=== PATIENT | male | born 1940 | race Caucasian/White ===

== ENCOUNTER 2017-11-28 06:55 | Observation (INO) | payer OTHER ==
[~2017-11-28] VITALS: Ht 177.8 cm; Wt 68.0 kg
--- NOTE | ~2017-11-28 | EKG ---
[address] [address] ELECTROCARDIOGRAM REPORT Name: ТАТЬЯНА MANCIA Room #: 211-P [facility]..#: [id number] Admission: 11/28/17 Attend Phys: Ruperto Flores MD Discharge: Date of : 44 Report #: [id number] THIS REPORT FOR: //name// [facility] Test Date: 2017-11-29 Test Time: 08:38:18 Pat Name: ТАТЬЯНА MANCIA Department: Room: 211 P Gender: M Cement Mixer: eliu : 1940 Requested By: Ruperto Flores Order Number: [id number] MD: Miguel Lowry Measurements Intervals [place] Rate: 73 P: 46 MD: 155 QRS: -72 QRSD: 143 T: 86 QT: 445 QTc: 491 Interpretive Statements Atrial-sensed ventricular-paced complexes No further analysis attempted due to paced rhythm No previous ECG available for comparison Electronically Signed On 11-29-2017 8:47:28 [place] [employer] by Miguel Lowry [email or web address] <ELECTRONICALLY SIGNED> By: Miguel Lowry MD, [facility] 11/29/17 0847 7 7 Miguel Lowry MD, [facility] /EPI
--- NOTE | ~2017-11-28 | P ---
[facility] [place] [address] PROCEDURE REPORT Name: ТАТЬЯНА MANCIA Room #: 211-P [facility] Jasmine MChacorta#: [id number] Admission: 11/28/17 Attend Phys: Ruperto Flores MD Discharge: 11/29/17 Date of : 44 Report #: [id number] THIS REPORT FOR: //name// CC: Shira Henson PROCEDURE PERFORMED: Bi-V ICD implantation. PREOPERATIVE DIAGNOSIS: Ischemic cardiomyopathy. HISTORY OF PRESENT ILLNESS: The patient is a 77-year-old with history of an ischemic cardiomyopathy, EF of 25% with class 3 heart failure symptoms and a left bundle branch block, QRS duration 152 milliseconds, who has been on optimal medical therapy for 3 months. He is here for biventricular ICD implantation. ANESTHESIA: The patient underwent MAC anesthesia with no anesthesia related complications. PROCEDURE: The patient underwent informed consent where we discussed the details of the procedure including the risks, which included, but not limited to bleeding, infection, vascular damage, cardiac perforation and pneumothorax. He understood these risks and is willing to proceed. As such, the patient was brought to the EP laboratory in a fasting and sedated state and prepped and draped in a sterile fashion. He underwent venography showing patency of the left axillary vein and received IV antibiotics. I then injected lidocaine at the level below the left clavicle, incision was made, a pocket was created over the prepectoral fascia and access was obtained 3 times to the left axillary vein using the extrathoracic approach with sheaths positioned using the modified Seldinger technique. Next, leads were positioned in the right ventricular apex and the right atrial appendage. These leads were sutured to the prepectoral fascia using Ethibond suture. Next, a coronary sinus guide sheath was placed into the right atrium and coronary sinus access was obtained without difficulty, there was a nice posterolateral branch noted and a quadripolar lead was positioned into this vessel with adequate pacing and sensing thresholds. Therefore, this sheath was split and this lead was sutured to the prepectoral fascia. The device was connected to leads and placed in the pocket and the pocket was irrigated with vancomycin and then closed in 3 layers. Surgical glue was placed to the outer skin layer. The patient awoke neurologically and hemodynamically intact with no complications and no significant bleeding. The implanted defibrillator was a [employer] model #[id number], serial #[id number]. Atrial lead was a [employer] model #2088TC, 52 cm, serial #[id number]. This lead demonstrated sensing of 2.3 millivolts, pacing impedance of 490 ohms and a pacing threshold of 0.5 volts at 0.5 milliseconds. RV lead was a [employer] model #7122Q, 58 cm, serial #[id number]. This lead demonstrated a R-wave of greater than 12 millivolts, pacing impedance of 680 ohms and a pacing threshold of 0.75 volts at 0.5 milliseconds. The LV lead was [facility] [address] [place] [address] PROCEDURE REPORT Name: ТАТЬЯНА MANCIA Room #: 211-P [facility] Lin#: [id number] Admission: 11/28/17 Attend Phys: Ruperto Flores MD Discharge: 11/29/17 Date of : 44 Report #: [id number] [employer] model #1458Q, 86 cm, serial #[id number], this demonstrated an impedance of 610 ohms and a pacing threshold of 1 volt at 0.5 milliseconds. The device was programmed to the DDDR 60-130 mode. The VT zone was set at 180-220 beats per minute with 3 rounds of bursts followed by 3 rounds of ramp followed by max output shocks. The VT zone was set at greater than 220 beats per minute with ATP while charging followed by max output shocks. CONCLUSIONS: 1. Successful Bi-V ICD implantation. 2. Satisfactory atrial, right ventricular and left ventricular pacing and sensing thresholds. <ELECTRONICALLY SIGNED> By: Ruperto Flores MD 12/21/17 1749 1444 1912 Ruperto Flores MD /nt
--- NOTE | ~2017-11-28 | D ---
[facility] [place] [address] DISCHARGE SUMMARY Name: ТАТЬЯНА MANCIA Room #: 211-P [facility] Jasmine Lin#: [id number] Admission: 11/28/17 Attend Phys: Ruperto Flores MD Discharge: 11/29/17 Date of : 44 Report #: [id number] THIS REPORT FOR: //name// CC: Shira Henson DATE OF SERVICE: 11/29/2017 DISCHARGE DIAGNOSES: 1. Ischemic cardiomyopathy. 2. [employer] functional class 3 heart failure. 3. Left bundle-branch block. PROCEDURES PERFORMED Bi-V ICD implantation. HISTORY OF PRESENT ILLNESS: The patient is a gentleman with an ischemic cardiomyopathy, here for Bi-V ICD implantation. The procedure was performed and was successful without complications. HOSPITAL COURSE: The patient was monitored overnight in the CCU. The following day, the patient was doing well without any chest pain or shortness of breath. His physical exam revealed a normal cardiovascular exam. Lungs were clear to auscultation bilaterally. Abdomen was soft, nontender and his incision site was healing nicely with no hematoma or bruising. On telemetry, he remained in a sinus rhythm with a biventricular paced rhythm. His chest x-ray showed stable lead position with no pneumothorax and his device interrogation was within normal limits. As such, he was deemed stable for discharge home with instructions to follow up in 7-10 days for a site check and he will continue on his home medications. <ELECTRONICALLY SIGNED> By: Ruperto Flores MD 12/21/17 1749 1446 1517 Ruperto Flores MD /nt
[~2017-11-28 06:55] MED LIST: AMIODARONE HCL100 MG PO; ASPIR 8181 MG PO; BRILINTA90 MG PO; CARVEDILOL6.25 MG; COMBIVENT INH; COZAAR 50 MG TA50 M2 PO; CRESTOR10 MG PO; DEMADEX20 MG PO; LISINOPRIL10 MG PO; LOPRESSOR25 PO; PACERONE 200 M200 M1 PO; PLAVIX 75 MG TA75 M1 PO; PRIMIDONE50 MG PO; SPIRONOLACTONE25 MG PO; TOPROL XL50 MG PO
[2017-11-28 07:04] VITALS: BP 93/56
[2017-11-28 07:33] LABS: ABSOLUTE NEUTROPHILS 5.6 thou/uL (1.4-8.2); BASOPHILS 0.9 % (0.0-2.0); EOSINOPHILS 5.7 % (0.0-3.0); HEMATOCRIT 40.7 % (42.0-52.0); HEMOGLOBIN 13.5 gm/dL (14.0-18.0); LYMPHOCYTES 24.2 % (24.0-44.0); MCHC 33.3 g/dL (28.0-37.0); MCV 90.3 fL (80.0-100.0); MONOCYTES 7.7 % (1.0-8.0); PLATELET COUNT 176 thou/uL (150-400); POLYS 61.5 % (36.0-66.0); RDW 14.8 % (10.5-14.5); WBC 9.2 thou/uL (4.0-11.0)
[2017-11-28 07:38] LABS: CALCIUM 9.4 mg/dL (8.5-10.1); CREATININE 1.5 mg/dL (0.7-1.3); POTASSIUM 3.9 mmol/L (3.5-5.1)
[2017-11-28 07:50] LABS: PROTIME 10.7 Seconds (9.3-11.4)
[2017-11-28 12:28] VITALS: BP 99/65
[2017-11-28 15:53] VITALS: BP 107/72
[2017-11-28 20:20] VITALS: BP 102/67
[2017-11-29 04:45] VITALS: BP 102/65
[2017-11-29 09:53] VITALS: BP 102/67
== END 2017-11-29 10:40 | disposition home or self-care (01) ==
LOC: CATH 06:55 → 2N 07:04 → CATH 12:48 → ENTRNSPT 11-29 10:26 → EDTRNSPTSTS 11-29 10:28 → 2N 11-29 10:40
PROVIDERS: Internal Medicine Cardiovascular Disease
DX: I25.5 Ischemic cardiomyopathy (principal); I44.7 Left bundle-branch block, unspecified; I48.0 Paroxysmal atrial fibrillation; E78.00 Pure hypercholesterolemia, unspecified; I25.2 Old myocardial infarction; Z82.49 Family history of ischemic heart disease and other diseases of the circulatory system; F17.210 Nicotine dependence, cigarettes, uncomplicated; R42 Dizziness and giddiness; Z95.5 Presence of coronary angioplasty implant and graft; R06.00 Dyspnea, unspecified

== ENCOUNTER → 2021-02-14 | Outpatient (CLI) | payer OTHER ==
[~2021-02-14] MED LIST changes: +CARVEDILOL3.125 MG PO; -CARVEDILOL6.25 MG; +FISH OIL 1,0001 EAC9 PO; +TRELEGY ELLIPT1 EACH INH; +TREZIX PO; +VITAMIN C500 M2 PO
== END ==
LOC: CAT 10:00
PROVIDERS: ATTEND Internal Medicine
DX: J90 Pleural effusion, not elsewhere classified (principal); R91.8 Other nonspecific abnormal finding of lung field; M25.78 Osteophyte, vertebrae; J98.4 Other disorders of lung; I89.0 Lymphedema, not elsewhere classified

== ENCOUNTER → 2021-02-15 | Outpatient (CLI) | payer OTHER | LOC: PET 01:58 | PROVIDERS: ATTEND Internal Medicine | DX: R91.8 Other nonspecific abnormal finding of lung field (principal); I51.7 Cardiomegaly; J98.4 Other disorders of lung ==

== ENCOUNTER → 2021-08-18 | Outpatient (CLI) | payer OTHER ==
[~2021-08-18] MED LIST changes: +ADULT LOW DOSE81 MG PO; -ASPIR 8181 MG PO; +CEFDINIR300 MG PO; +TORSEMIDE20 MG PO
== END ==
LOC: LAB 13:09
PROVIDERS: ATTEND Family Medicine
DX: R91.8 Other nonspecific abnormal finding of lung field (principal)